=== PATIENT | female | born 1960 | race Caucasian/White ===

== ENCOUNTER 2016-12-21 14:54 | Emergency (ER) | payer MEDICAID ==
[2016-12-21] MEDS ORDERED: Ondansetron 4 MG/2 ML SDV IVPUSH ONE (15:11)
[2016-12-21] MEDS ORDERED: diphenhydrAMINE 50 MG/ML SDV IVPUSH ONE (15:24)
[2016-12-21] MEDS ORDERED: Aluminum Hydroxide/Magnesium Hydroxide/Simethicone Susp 30 ML Cup PO ONE (15:25)
[2016-12-21] MEDS ORDERED: Lactated Ringers 1,000 ML IV SCH (15:30)
--- NOTE | 2016-12-21 15:31 | EDM.PDOC ---
ED HPI GENERAL MEDICAL PROBLEM - General Chief Complaint: Neurological Problem Stated Complaint: LIGHT-HEADED/FATIGUED Time Seen by Provider: 12/21/16 15:20 Source of Information: Reports: Patient, Family, Old Records History Limitations: Reports: No Limitations - History of Present Illness INITIAL COMMENTS - FREE TEXT/NARRATIVE: 56 yo female presents with nausea and dizziness. Sx's began while walking and included for about 30 minutes numbness to the back of the head and neck. The numbness is now gone. Has not drank much today. No CANO. 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 Is on ASA 325 mg daily and has noticed some epigastric tenderness and anorexia lately. No black or bloody stools. Denies vertigo, but moving her eyes or head makes her nausea worse. No chest pain. Onset: Today Onset Date: 12/21/16 Onset Time: 14:30 Duration: Minutes:, Constant Location: Reports: Head Quality: Reports: Other (had transient occipital numbness, now gone.) Severity: Moderate Improves with: Reports: Rest Worsens with: Reports: Movement Context: Reports: Other (cerebral aneurysm from 07/01.) Associated Symptoms: Reports: Loss of Appetite, Malaise, Nausea/Vomiting (no vomiting.), Weakness. 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 (see below) (none) - Related Data Allergies Allergy/AdvReac Type Severity Reaction Status Date / Time codeine Allergy Vomiting Verified 11/23/15 10:15 azalfidine Allergy Vomiting Uncoded 11/23/15 10:15 Home Meds: Home Meds azaTHIOprine [Imuran] 150 mg PO DAILY 11/20/15 [History] Acetaminophen [Tylenol] 1,000 mg PO ASDIRECTED PRN 12/21/16 [History] Aspirin 325 mg PO DAILY 12/21/16 [History] Calcium Citrate/Vitamin D3 [Calcium Citrate + D] 1 tab PO DAILY 12/21/16 [ History] Famotidine 40 mg PO DAILY #30 tablet 12/21/16 [Rx] Gabapentin [Neurontin] 200 mg PO TID 12/21/16 [History] L.acidoph,Paracasei, B.lactis [Probiotic] 1 each PO DAILY 12/21/16 [History] LORazepam [Ativan] 0.5 mg PO TID PRN 12/21/16 [History] Lactulose 20 gm PO BID 12/21/16 [History] Meclizine [Antivert] 25 mg PO Q6H PRN #20 tab.chew 12/21/16 [Rx] Meclizine [Antivert] 25 mg PO TID PRN 12/21/16 [History] Mecobalamin [Methylcobalamin] 2.5 gm BUCCAL DAILY 12/21/16 [History] Mesalamine [Canasa] 1,000 mg RECTAL BID 12/21/16 [History] Methyltetrahydrofolate Calcium 1,000 mcg PO DAILY 12/21/16 [History] Metoprolol Tartrate 25 mg PO DAILY 12/21/16 [History] Vits #90/Iron Fum/FA [ Formula] 1 each PO DAILY 12/21/16 [ History] Past Medical History HEENT History: Reports: Impaired Vision Gastrointestinal History: Reports: Other (See Below) Other Gastrointestinal History: ulcerative colitis 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 Denies: Vertigo Respiratory: Reports: No Symptoms Cardiovascular: Reports: No Symptoms Endocrine: Reports: No Symptoms GI/Abdominal: Reports: Abdominal Pain (epigastric, preceeded today's episode.), Nausea. Denies: Constipation, Diarrhea, Flatus, Hematemesis, Hematochezia, Melena, Vomiting : Reports: No Symptoms Musculoskeletal: Reports: No Symptoms Skin: Reports: No Symptoms Neurological: Reports: Dizziness, Numbness (back of her head and neck, transiently x 30 min., now resolved.). Denies: Confusion, Headache, Pre- Existing Deficit, Seizure, Syncope, Tremors, Trouble Speaking, Difficulty Walking, Change in Speech Psychiatric: Reports: No Symptoms ED EXAM, NEURO - Physical Exam Exam: See Below Exam Limited By: No Limitations General Appearance: Alert, WD/WN, No Apparent Distress Eye Exam: Bilateral Eye: EOMI, Normal Inspection, PERRL, Other (No nystagmus) Ears: Normal External Exam, Normal Canal, Hearing Grossly Normal, Normal TMs Nose: Normal Inspection, Normal Mucosa, No Blood Throat/Mouth: Normal Inspection, Normal Lips, Normal Teeth, Normal Gums, Normal Oropharynx, Normal Voice, No Airway Compromise Head Exam: Atraumatic, Normocephalic Neck: Normal Inspection, Supple, Non-Tender, Full Range of Motion Respiratory/Chest: No Respiratory Distress, Lungs Clear, Normal Breath Sounds, No Accessory Muscle Use Cardiovascular: Regular Rate, Rhythm, No Edema, No Murmur. No: Bradycardia, Tachycardia, Extra Beats, Irregularly Irregular GI/Abdominal: Normal Bowel Sounds, Soft, Non-Tender, No Distention Neurological: Alert, Normal Mood/Affect, CN II-XII Intact, No Motor/Sensory Deficits, Oriented x 3. No: No Response to Pain, Tremor Back Exam: Normal Inspection Extremities: Normal Inspection, Normal Range of Motion, Non-Tender, No Pedal Edema Psychiatric: Normal Affect, Normal Mood Skin Exam: Warm, Dry, Intact, Normal Color, No Rash EKG INTERPRETATION EKG Date: 12/21/16 Time: 15:10 Rhythm: NSR Rate (beats/min): 63 [place]: normal P-wave: present QRS: normal ST-T: normal QT: normal Comparison: other: (improved with resolution of 1st degree A-V block) Course - Vital Signs Last Recorded V/S: Last Vital Signs Temp 36.9 C 12/21/16 15:06 Pulse 57 L 12/21/16 16:49 Resp 24 H 12/21/16 15:06 BP 119/80 12/21/16 16:49 Pulse Ox 96 12/21/16 15:06 - Orders/Labs/Meds Orders: Active Orders 24 hr Category Date Time Status EKG Documentation Completion [RC] ASDIRECTED Care 12/21/16 15:11 Active Head wo Cont [CT] Stat Exams 12/21/16 15:38 Taken Lactated Ringers [Ringers, Lactated] 1,000 ml Med 12/21/16 15:30 Active IV ASDIRECTED EKG 12 Lead [EK] Routine Ther 12/21/16 15:11 Ordered Medication Orders Lactated Ringer's (Ringers, Lactated) 1,000 mls @ 999 mls/hr IV ASDIRECTED NAVEEN Last Admin: 12/21/16 15:34 Dose: 999 mls/hr Labs: Laboratory Tests 12/21/16 12/21/16 12/21/16 Range/Units 15:34 15:34 16:18 WBC 3.8 L (4.5-11.0) K/uL RBC 3.41 (3.30-5.50) M/uL Hgb 10.7 L (12.0-15.0) g/dL Hct 33.1 L (36.0-48.0) % MCV 97 (80-98) fL MCH 31 (27-31) pg MCHC 32 (32-36) % Plt Count 189 (150-400) K/uL Sodium 142 (140-148) mmol/L Potassium 3.7 (3.6-5.2) mmol/L Chloride 107 (100-108) mmol/L Carbon Dioxide 30 (21-32) mmol/L Anion Gap 5.4 (5.0-14.0) mmol/L BUN 11 (7-18) mg/dL Creatinine 0.8 (0.6-1.0) mg/dL Est Cr Clr Drug Dosing 63.03 mL/min Estimated GFR (MDRD) > 60 (>60) Glucose 81 (74-106) mg/dL Calcium 8.8 (8.5-10.1) mg/dL Troponin I < 0.017 (0.000-0.056) ng/mL Urine Color Yellow Urine Appearance Clear Urine pH 7.0 (4.5-8.0) Ur Specific [place] 1.005 L (1.008-1.030) Urine Protein Negative (NEGATIVE) mg/dL Urine Glucose (UA) Normal (NEGATIVE) mg/dL Urine Ketones Negative (NEGATIVE) mg/dL Urine Occult Blood Negative (NEGATIVE) Urine Nitrite Negative (NEGATIVE) Urine Bilirubin Negative (NEGATIVE) Urine Urobilinogen Normal (NORMAL) mg/dL Ur Leukocyte Esterase Negative (NEGATIVE) Urine RBC 0-5 (0-5) Urine WBC Not seen (0-5) Ur Epithelial Cells Not seen Amorphous Sediment Rare Urine Bacteria Not seen Urine Mucus Not seen Meds: Medications Generic Name Dose Route Start Last Admin Trade Name Freq PRN Reason Stop Dose Admin Lactated Ringer's 1,000 mls @ 999 mls/hr 12/21/16 15:30 12/21/16 15:34 Ringers, Lactated IV 999 mls/hr ASDIRECTED NAVEEN Administration Discontinued Medications Generic Name Dose Route Start Last Admin Trade Name David PRN Reason Stop Dose Admin Al Hydroxide/Mg Hydroxide 30 ml 12/21/16 15:25 12/21/16 15:38 Mag-Al Plus PO 12/21/16 15:26 30 ml ONETIME ONE Administration Diphenhydramine HCl 25 mg 12/21/16 15:24 12/21/16 15:36 Benadryl IVPUSH 12/21/16 15:25 25 mg ONETIME ONE Administration Metoprolol Tartrate 25 mg 12/21/16 15:50 12/21/16 16:09 Lopressor PO 12/21/16 15:51 25 mg ONETIME ONE Administration Ondansetron HCl 4 mg 12/21/16 15:11 12/21/16 15:17 Zofran IVPUSH 12/21/16 15:12 4 mg ONETIME ONE Administration - Radiology Interpretation Free Text/Narrative:: Head CT shows no new gross abnormalities. CT Results Date: 12/21/16 CT Results Time: 16:55 Departure - Departure Time of Disposition: 17:10 Disposition: Home, Self-Care 01 Condition: good Clinical Impression: Dizziness, Epigastric pain, Nausea Anemia Qualifiers: Anemia type: unspecified type Qualified Code(s): D64.9 - Anemia, unspecified - Discharge Information Forms: ED Department Discharge - My Orders Last 24 Hours: My Active Orders 12/21/16 15:11 EKG Documentation Completion [RC] ASDIRECTED EKG 12 Lead [EK] Routine 12/21/16 15:30 Lactated Ringers [Ringers, Lactated] 1,000 ml IV ASDIRECTED 12/21/16 15:38 Head wo Cont [CT] Stat - Assessment/Plan Last 24 Hours: My Active Orders 12/21/16 15:11 EKG Documentation Completion [RC] ASDIRECTED EKG 12 Lead [EK] Routine 12/21/16 15:30 Lactated Ringers [Ringers, Lactated] 1,000 ml IV ASDIRECTED 12/21/16 15:38 Head wo Cont [CT] Stat
[2016-12-21] MEDS ORDERED: Metoprolol Tartrate 25 MG Tab PO ONE (15:50)
[2016-12-21 16:49] VITALS: BP 119/80
== END 2016-12-21 17:25 | disposition home or self-care (01) ==
LOC: JP.ED 14:54
DX: R42 Dizziness and giddiness (principal); D64.9 Anemia, unspecified; R11.0 Nausea; F32.9 Major depressive disorder, single episode, unspecified; F41.9 Anxiety disorder, unspecified; F43.10 Post-traumatic stress disorder, unspecified; Z79.899 Other long term (current) drug therapy; Z79.82 Long term (current) use of aspirin; Z88.5 Allergy status to narcotic agent; Z88.8 Allergy status to other drugs, medicaments and biological substances
CPT/HCPCS: 36415; 70450; 80048; 81001; 84484; 85027; 93005; 96374; 96375; 99285; A9270; J1200; J2405; J7120

== ENCOUNTER 2018-01-30 16:45 | Emergency (ER) | payer MEDICAID ==
[2018-01-30 17:01] VITALS: BP 131/84
[2018-01-30] MEDS ORDERED: Ondansetron 4 MG Tab.DIS PO ONE (18:45)
--- NOTE | 2018-01-30 19:20 | EDM.PDOC ---
ED HPI GENERAL MEDICAL PROBLEM - General Chief Complaint: Neurological Problem Stated Complaint: SEIZURE ISSUES Time Seen by Provider: 01/30/18 18:10 Source of Information: Reports: Patient, Family, Old Records, RN Notes Reviewed History Limitations: Reports: Other (Some confusion related to the episodes and some impairment of memory) - History of Present Illness INITIAL COMMENTS - FREE TEXT/NARRATIVE: Here with her Chief complaint Episode of confusion and altered behavior History of present illness 57-year-old female has had recurring episodes described in more detail below, since she had an aneurysm in June 2017. Her most recent episode was 2 days ago. She talk to her therapist who recommended she talk to her neurologist in a neurologist recommended she come in to get checked for seizures. In June 2017 she was scraping the ice off car window when she suddenly collapsed and was on the ground for some time. Presented with confusion and hypothermia to emergency. Diagnosed with ruptured cerebral aneurysm. She underwent carotid stenting and aneurysm stenting. She also gives a history of migraine headaches for 18 years, with these occurring every 1-2 months. She has ulcerative colitis for which she is on Imuran And she has a history of anxiety depression and PTSD Since the aneurysm, she has had an episode as frequently as once a month at which she calls "brain episodes". He'll be a trigger such as overstimulation, loud music, and elevator, waves on water, or some flashing lights and will bring on the spell of confusion immobility anxiety panic and dizziness including a spinning sensation nausea and off balance feeling. Although the nausea can be quite bad she never vomits with these episodes. The bulk of the symptoms lasts between half an hour to an hour and then there is persisting confusion afterwards where she can't remember exactly what happened where she is what she is doing whether she's taken her medication. When she gets these episodes as often some headache as well as the dizziness and the anxiety so she usually takes a tablet of ketorolac meclizine and lorazepam. The confusion occurs after the spells can last for a few hours into the night sometimes even into the next day. The episode that occurred 2 days ago was much different, in that there were throat symptoms, it felt as if she could feel the bones in her neck and that she couldn't talk her mouth was paralyzed and then she had some chest tightness and heaviness in the chest. Her who was with her did not notice these additional symptoms, he thought was a spell similar to the others. Because of these additional symptoms, she did mention to the therapist to recommend she call the neurologist. Neurologist recommended that she not drive until she is cleared for that, she states her neurologist has not been much involved since the aneurysm, sees him once a year in [place]. 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 Her primary care is in [place] with the [facility]. Unfortunately I don't have access to these records. In order to drive she wears prism glasses that lockout light from the side. She' s never been told not to drive until this most recent conversation with her neurologist. She's had many visits to ER for these spells, not here, and she's had several CT scans, and no reapproximation of why these episodes occur has come out. It doesn't sound like she's had an EEG, and it's unclear she's had an MRI since her aneurysm. She's never had any tonic-clonic seizures. She is on gabapentin, this is a low dose, this is for headache pain. - Related Data Allergies Allergy/AdvReac Type Severity Reaction Status Date / Time codeine AdvReac Vomiting Verified 12/22/16 14:22 azalfidine Allergy Vomiting Uncoded 11/23/15 10:15 gluton Allergy Swelling Uncoded 01/30/18 17:25 Home Meds: Home Meds azaTHIOprine [Imuran] 150 mg PO DAILY 11/20/15 [History] Acetaminophen [Tylenol] 1,000 mg PO ASDIRECTED PRN 12/21/16 [History] Calcium Citrate/Vitamin D3 [Calcium Citrate + D] 1 tab PO DAILY 12/21/16 [ History] Gabapentin [Neurontin] 300 mg PO DAILY 12/21/16 [History] LORazepam [Ativan] 0.5 mg PO TID PRN 12/21/16 [History] Meclizine [Antivert] 25 mg PO Q6H PRN #20 tab.chew 12/21/16 [Rx] Mecobalamin [Methylcobalamin] 2.5 gm BUCCAL DAILY 12/21/16 [History] Methyltetrahydrofolate Calcium 1,000 mcg PO DAILY 06/07/17 [History] Metoprolol Tartrate 25 mg PO BID 12/21/16 [History] Vit 90/Iron Fum/Folic [ Formula] 1 each PO DAILY 12/21/16 [ History] Aspirin [Halfprin] 81 mg PO DAILY 01/30/18 [History] Ketorolac [Toradol] 10 mg PO DAILY PRN 01/30/18 [History] Past Medical History HEENT History: Reports: Impaired Vision Cardiovascular History: Reports: Hypertension Respiratory History: Reports: None Gastrointestinal History: Reports: Other (See Below) Other Gastrointestinal History: ulcerative colitis Genitourinary History: Reports: None 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: Musculoskeletal History: Reports: None Neurological History: Reports: Other (See Below) Other Neuro History: brain aneurysm in , 2016 Stent in brain Psychiatric History: Reports: Anxiety, Depression, PTSD Endocrine/Metabolic History: Reports: None Hematologic History: Reports: None Immunologic History: Reports: None Oncologic (Cancer) History: Reports: None Dermatologic History: Reports: None - Infectious Disease History Infectious Disease History: Reports: Chicken Pox - Past Surgical History Cardiovascular Surgical History: Reports: Carotid Stents Social & Family History - Tobacco Use Smoking Status *Q: Former Smoker Used Tobacco, but Quit: Yes Month/Year Tobacco Last Used: 1998 - Caffeine Use Caffeine Use: Reports: Coffee, Soda, Tea - Recreational Drug Use Recreational Drug Use: No ED ROS GENERAL - Review of Systems Review Of Systems: See Below Constitutional: Reports: Fatigue. Denies: Fever, Chills, Weakness HEENT: Reports: Other (Throat discomfort as described above, this has resolved) . Denies: Ear Pain, Eye Pain, Hearing Loss, Nose Pain, Rhinitis Respiratory: Reports: No Symptoms Cardiovascular: Reports: Chest Pain (And tightness, resolved), Lightheadedness ( With the episodes, resolved). Denies: Dyspnea on Exertion, Edema, Syncope Endocrine: Reports: Fatigue GI/Abdominal: Reports: Nausea (With the episode and also some currently). Denies: Abdominal Pain, Diarrhea, Decreased Appetite, Vomiting : Reports: No Symptoms Musculoskeletal: Reports: No Symptoms Skin: Reports: No Symptoms Neurological: Reports: Confusion, Dizziness, Headache (Being both spinning sensation and off balance feeling), Difficulty Walking (Off-balance feeling), Gait Disturbance. Denies: Numbness, Paresthesia, Seizure, Syncope, Tingling, Change in Speech Psychiatric: Reports: Anxiety, Confusion. Denies: Suicidal Ideation Hematologic/Lymphatic: Reports: No Symptoms Immunologic: Reports: Other (Ulcerative colitis) ED EXAM, NEURO - Physical Exam Exam: See Below Exam Limited By: Uncooperative (Patient refuses several tests including Romberg , ocular tests, and reaction to light) General Appearance: Anxious, Mild Distress, Other (She appears well, vital signs are normal, no difficulty speaking although she does have some trouble remembering all the details of her events, supplements the history) Eye Exam: Bilateral Eye: Normal Inspection (However unable to fully assess due to above) Ears: Normal External Exam, Normal Canal, Hearing Grossly Normal, Normal TMs Nose: Normal Inspection, Normal Mucosa Throat/Mouth: Normal Inspection, Normal Lips, Normal Oropharynx, Normal Voice Head Exam: Atraumatic. No: Facial Swelling, Facial Tenderness Neck: Normal Inspection, Non-Tender. No: Lymphadenopathy (R), Lymphadenopathy ( L) Respiratory/Chest: No Respiratory Distress, Lungs Clear, Normal Breath Sounds, No Accessory Muscle Use Cardiovascular: Normal Peripheral Pulses, Regular Rate, Rhythm, No Murmur GI/Abdominal: Soft, Non-Tender Neurological: Alert, Difficulty Walking (Disequilibrium), Other (Unable to fully assess due to patient's unwillingness to perform certain tests) Extremities: Normal Inspection Psychiatric: Anxious Skin Exam: Warm, Dry, Intact, Normal Color, No Rash Course - Vital Signs Last Recorded V/S: Last Vital Signs Temp 35.8 C 01/30/18 17:08 Pulse 77 01/30/18 17:08 Resp 16 01/30/18 17:08 BP 131/84 01/30/18 17:08 Pulse Ox 97 01/30/18 17:08 - Orders/Labs/Meds Orders: Active Orders 24 hr Category Date Time Status EKG Documentation Completion [RC] ASDIRECTED Care 01/30/18 18:45 Active Head wo Cont [CT] Stat Exams 01/30/18 18:45 Taken UA W/MICROSCOPIC [URIN] Stat Lab 01/30/18 19:03 Ordered EKG 12 Lead [EK] Routine Ther 01/30/18 18:44 Ordered Labs: Laboratory Tests 01/30/18 01/30/18 01/30/18 Range/Units 18:44 18:44 19:03 WBC 4.5 (4.5-11.0) K/uL RBC 3.89 (3.30-5.50) M/uL Hgb 12.7 D (12.0-15.0) g/dL Hct 37.0 (36.0-48.0) % MCV 95 (80-98) fL MCH 33 H (27-31) pg MCHC 34 (32-36) % Plt Count 183 (150-400) K/uL Sodium 141 (140-148) mmol/L Potassium 3.9 (3.6-5.2) mmol/L Chloride 105 (100-108) mmol/L Carbon Dioxide 28 (21-32) mmol/L Anion Gap 8.4 (5.0-14.0) mmol/L BUN 17 D (7-18) mg/dL Creatinine 1.0 (0.6-1.0) mg/dL Est Cr Clr Drug Dosing 50.27 mL/min Estimated GFR (MDRD) 58 L (>60) Glucose 90 (74-106) mg/dL Calcium 9.1 (8.5-10.1) mg/dL Total Bilirubin 0.3 (0.2-1.0) mg/dL AST 28 (15-37) U/L ALT 33 (12-78) U/L Alkaline Phosphatase 60 (46-116) U/L Troponin I < 0.017 (0.000-0.056) ng/mL Total Protein 7.6 (6.4-8.2) g/dL Albumin 4.1 (3.4-5.0) g/dL Globulin 3.5 (2.3-3.5) g/dL Albumin/Globulin Ratio 1.2 (1.2-2.2) Urine Color Yellow Urine Appearance Clear Urine pH 6.0 (4.5-8.0) Ur Specific [place] 1.015 (1.008-1.030) Urine Protein Negative (NEGATIVE) mg/dL Urine Glucose (UA) Normal (NEGATIVE) mg/dL Urine Ketones Negative (NEGATIVE) mg/dL Urine Occult Blood Moderate (NEGATIVE) Urine Nitrite Negative (NEGATIVE) Urine Bilirubin Negative (NEGATIVE) Urine Urobilinogen Normal (NORMAL) mg/dL Ur Leukocyte Esterase Moderate (NEGATIVE) Urine RBC 5-10 H (0-5) Urine WBC 5-10 H (0-5) Ur Epithelial Cells Rare Amorphous Sediment Not seen Urine Bacteria Few Urine Mucus Not seen Meds: Medications Discontinued Medications Generic Name Dose Route Start Last Admin Trade Name David PRN Reason Stop Dose Admin Ondansetron HCl 4 mg 01/30/18 18:45 01/30/18 18:56 Zofran Odt PO 01/30/18 18:46 4 mg ONETIME ONE Administration - Re-Assessments/Exams Free Text/Narrative Re-Assessment/Exam: 01/30/18 19:24 57-year-old female with history of cerebral aneurysm Recurrent neurologic symptoms occurring a very similar pattern, about once a month. This particular episode scared her because of throat and chest symptoms in addition to the usual symptoms. However it's unlikely that investigations here will yield any results, it is recommended that she have an MRI and EEG, this can be arranged through her neurologist or her primary care. Ondansetron 4 mg ODT 01/30/18 20:07 CBC and complete metabolic profile are unremarkable EKG shows sinus rhythm, rate 65, normal EKG by my interpretation CT head negative for any acute changes, streak artifact from aneurysmal clips 01/30/18 20:19 Copies of report sent with patient Departure - Departure Time of Disposition: 20:14 Disposition: Home, Self-Care 01 Condition: Undetermined Clinical Impression: Episodic confusion, History of cerebral aneurysm repair - Discharge Information Instructions: Altered Mental Status Referrals: PCP,None [Primary Care Provider] - Forms: ED Department Discharge Additional Instructions: Episodes of confusion/altered awareness/anxiety/dizziness. It's unclear what is causing his episodes, it possibly could be a seizure or a mini stroke. Further evaluation with magnetic resonance imaging (MRI) of the brain and electroencephalogram (EEG) are recommended It is recommended that you do not drive until you are cleared by her neurologist. Make an appointment with your neurologist and/or your primary care provider for further evaluation of these episodes. Testing tonight did not show any significant abnormalities. - My Orders Last 24 Hours: My Active Orders 01/30/18 18:44 EKG 12 Lead [EK] Routine 01/30/18 18:45 EKG Documentation Completion [RC] ASDIRECTED Head wo Cont [CT] Stat 01/30/18 19:03 UA W/MICROSCOPIC [URIN] Stat - Assessment/Plan Last 24 Hours: My Active Orders 01/30/18 18:44 EKG 12 Lead [EK] Routine 01/30/18 18:45 EKG Documentation Completion [RC] ASDIRECTED Head wo Cont [CT] Stat 01/30/18 19:03 UA W/MICROSCOPIC [URIN] Stat
== END 2018-01-30 17:45 | disposition home or self-care (01) ==
LOC: JP.ED 16:45
DX: R41.0 Disorientation, unspecified (principal); I10 Essential (primary) hypertension; F41.9 Anxiety disorder, unspecified; F32.9 Major depressive disorder, single episode, unspecified; Z79.82 Long term (current) use of aspirin; Z79.899 Other long term (current) drug therapy; Z88.5 Allergy status to narcotic agent; Z98.890 Other specified postprocedural states; Z87.891 Personal history of nicotine dependence; Z88.8 Allergy status to other drugs, medicaments and biological substances
CPT/HCPCS: 36415; 70450; 80053; 81001; 84484; 85027; 93005; 99284; A9270

== ENCOUNTER 2020-02-24 15:03 | Emergency (ER) | payer MEDICAID ==
[2020-02-24 15:20] VITALS: BP 159/83; PULSE 63
== END 2020-02-24 15:40 | disposition left against medical advice (07) ==
LOC: JP.ED 15:03
DX: Z53.21 Procedure and treatment not carried out due to patient leaving prior to being seen by health care provider (principal)